=== PATIENT | male | born 1985 | race Asian ===

== ENCOUNTER 2016-11-12 06:00 | Emergency (ER) | payer OTHER ==
[~2016-11-12] VITALS: Ht 177.8 cm; Wt 89.5 kg
[2016-11-12] MEDS ORDERED: NAPROXEN500 MG PO (07:18)
[2016-11-12 07:47] VITALS: BP 125/74
[2016-11-12] MEDS ORDERED: no home meds (07:48)
== END 2016-11-12 08:03 | disposition hospice, inpatient (51) ==
LOC: EME 06:00
DX: M76.51 Patellar tendinitis, right knee (principal)
CPT/HCPCS: 73564; 99281; 99284; J1885